=== PATIENT | male | born 1980 | race Caucasian/White ===

== ENCOUNTER 2019-05-03 07:24 | Emergency (ER) | payer OTHER, BC ==
[2015-03-10 19:34] VITALS: BP 147/91
[~2019-05-03] VITALS: Ht 175.3 cm; Wt 90.3 kg
[~2019-05-03 07:24] MED LIST: NAPR-514 PO
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
[2019-05-03 08:22] LABS: DIRECT BILIRUBIN 0.1 mg/dL (0.0-0.2); TOTAL BILIRUBIN 0.4 mg/dL (0.2-1.0); TOTAL PROTEIN 7.9 g/dL (6.4-8.2)
== END 2019-05-03 08:20 | disposition home or self-care (01) ==
LOC: ER 07:24
DX: Z77.21 Contact with and (suspected) exposure to potentially hazardous body fluids (principal); H57.89 Other specified disorders of eye and adnexa
CPT/HCPCS: 36415; 80076; 86703; 99284

== ENCOUNTER 2019-12-06 10:36 | Emergency (ER) | payer BC, OTHER ==
[~2019-12-06] VITALS: Ht 175.3 cm; Wt 79.0 kg
[2019-12-06 10:45] VITALS: BP 166/98
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
[2019-12-06 11:15] LABS: BASO % 1 % (0-3); EOS # 0.1 x10^3/uL (0.0-0.7); EOS % 1 % (0-3); HEMATOCRIT 45.7 % (39.0-53.0); HEMOGLOBIN 15.3 g/dL (13.0-17.5); LYMPH # 1.7 x10^3/uL (1.0-4.8); LYMPH % 28 % (24-48); MEAN CORPUSCULAR HEMOGLOBIN 29 pg (25-35); MEAN CORPUSCULAR HGB CONC 33 g/dL (31-37); MEAN CORPUSCULAR VOLUME 87 fL (79-100); MONO # 0.4 x10^3/uL (0.0-1.1); MONO % 7 % (0-9); NEUT # 3.9 x10^3uL (1.8-7.7); NEUT % 63 % (31-73); PLATELET COUNT 307 x10^3/uL (140-400); RED BLOOD COUNT 5.27 x10^6/uL (4.30-5.70); WHITE BLOOD COUNT 6.2 x10^3/uL (4.0-11.0)
[2019-12-06 11:23] LABS: CALCIUM 9.3 mg/dL (8.5-10.1); GFR 84.1; POTASSIUM 4.1 mmol/L (3.5-5.1)
[2019-12-06 11:29] LABS: ALBUMIN 4.1 g/dL (3.4-5.0); ALBUMIN/GLOBULIN RATIO 1.1 (1.0-1.7); TOTAL BILIRUBIN 0.3 mg/dL (0.2-1.0); TOTAL PROTEIN 7.9 g/dL (6.4-8.2)
== END 2019-12-06 11:05 | disposition home or self-care (01) ==
LOC: ER 10:36
DX: Z77.21 Contact with and (suspected) exposure to potentially hazardous body fluids (principal)
CPT/HCPCS: 36415; 80053; 85025; 86703; 86705; 86709; 86803; 87340; 99283